=== PATIENT | male | born 1960 | race Caucasian/White ===

== ENCOUNTER 2017-10-20 03:35 | Inpatient (IN) | END 2017-10-29 15:45 | disposition home or self-care (01) | DRG 812 ==

== ENCOUNTER 2017-11-13 10:41 | Inpatient (IN) | END 2017-11-14 18:53 | disposition home or self-care (01) | DRG 810 ==

== ENCOUNTER 2017-11-30 02:48 | Observation (INO) | END 2017-12-02 12:30 | disposition home or self-care (01) ==

== ENCOUNTER 2017-12-15 16:40 | Inpatient (IN) | END 2017-12-22 20:58 | disposition home or self-care (01) | DRG 809 ==

== ENCOUNTER 2018-07-05 18:43 | Inpatient (IN) | payer OTHER ==
[~2018-07-05] VITALS: Ht 177.8 cm; Wt 95.9 kg
[~2018-07-05 18:43] MED LIST: ALBU8.5H8 INH; CYCL100C21 PO; DOXY100T2 PO; FOLI-49 PO; MUPI22OI2 TOP; NYST1000 PO; PANT40TA3 PO; PANT40TA4 PO; PRED20TA PO; PRED5TAB PO
[2018-07-05] MEDS ORDERED: ACETAMINOPHEN 325 MG TAB PO STA (22:23)
[2018-07-05] MEDS ORDERED: CEFTRIAXONE 1 GM/50 ML (PMX) 50 ML IVPB STA (22:23)
[2018-07-05] MEDS ORDERED: SODIUM CHLORIDE 0.9% 1L BAG IV* STA (22:23)
[2018-07-05] MEDS ORDERED: ACYC200C2 PO (23:18)
[2018-07-05] MEDS ORDERED: FOLI-49 PO (23:19)
[2018-07-05] MEDS ORDERED: CYCL100C21 PO (23:20)
[2018-07-05] MEDS ORDERED: DEFE360T PO (23:21)
--- NOTE | 2018-07-06 01:17 | ERD ---
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 He also has abdominal pain and lung pain. Symptoms started 4 days ago. They have been worsening. He has had no treatment yet today. He does have a cough but no urinary symptoms. He is on cyclosporine. He did not get a flu shot this year. Upon review of old medical records this is the patient's 13th visit since 2008. ROS All systems reviewed and are negative except as per history of present illness. Medications Home Meds Reported Medications Deferasirox (Jadenu) 360 Mg Tablet, 1080 MG PO QAM, TAB 07/05/18 Cyclosporine* (Cyclosporine* Modified) 100 Mg Capsule, 200 MG PO QAM, CAP 07/05/18 Folic Acid* (Folic Acid*) 1 Mg Tablet, 4 MG PO DAILY, TAB 07/05/18 Acyclovir* (Acyclovir*) 200 Mg Capsule, 400 MG PO DAILY, CAP 07/05/18 Discontinued Scripts Pantoprazole* (Protonix*) 40 Mg Tablet.dr, 40 MG PO DAILY for 30 Days, TAB Prov:AMERICA VALDEZ 12/22/17 Pantoprazole* (Pantoprazole*) 40 Mg Tablet.dr, 40 MG PO DAILY@06 for 30 Days Prov:AMERICA VALDEZ 12/22/17 Prednisone* (Prednisone*) 5 Mg Tab, 30 MG PO DAILY for 14 Days, TAB Prov:AMERICA VALDEZ 12/22/17 Mupirocin* (Bactroban*) 2% -22 Gram Oint...g., 1 APPLIC TOP BID for 14 Days Prov:AMERICA VALDEZ 12/22/17 Folic Acid* (Folic Acid*) 1 Mg Tablet, 4 MG PO DAILY for 30 Days, TAB Prov:AMERICA VALDEZ 12/22/17 Cyclosporine* (Cyclosporine* Modified) 100 Mg Capsule, 200 MG PO QAM for 30 Days, CAP Prov:ZENAMERICA SMITH 12/22/17 Cyclosporine* (Cyclosporine* Modified) 100 Mg Capsule, 100 MG PO QHS for 30 Days, CAP Prov:ZENAMERICA SMITH 12/22/17 Albuterol Sulfate* (Proair HFA*) 8.5 Gm Hfa.aer.ad, 2 PUFF INH Q4 for 14 Days, #1 INHALER Prov:AMERICA VALDEZ 12/22/17 Nystatin (Nystatin) 100,000 Unit/1 Ml Oral.susp, 5 ML PO TID for 7 Days Prov:AMERICA VALDEZ 12/22/17 Doxycycline* (Vibramycin*) 100 Mg Tab, 100 MG PO BID for 7 Days, TAB Prov:AMERICA VALDEZ 12/22/17 Prednisone* (Prednisone*) 20 Mg Tab, 50 MG PO DAILY for 14 Days, TAB Prov:MARIA ELENA RIDDLE MD 12/02/17 Folic Acid* (Folic Acid*) 1 Mg Tablet, 4 MG PO DAILY for 30 Days, TAB Prov:MARIA ELENA RIDDLE MD 10/29/17 Allergies Allergies: Coded Allergies: No Known Allergies (Verified Allergy, Mild, 07/05/18) PMhx/Soc History of Surgery: Yes (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 in 2009) Anesthesia Reaction: No Hx Neurological Disorder: Yes (Weakness) Hx Respiratory Disorders: No Hx Cardiac Disorders: Yes (Aplastic Anemia) Hx Psychiatric Problems: No Hx Miscellaneous Medical Probl: No Hx Alcohol Use: No Hx Substance Use: No Hx Tobacco Use: Yes (quit +20 yrs ago) Smoking Status: Former smoker FmHx Family History: No diabetes Physical Exam Vitals Vital Signs Date Temp Pulse Resp B/P (MAP) Pulse Ox O2 O2 Flow FiO2 Time Delivery Rate 07/05/18 112 20 125/87 95 Room Air 22:58 (100) 07/05/18 102.0 22:54 07/05/18 102.0 126 22 130/81 97 19:01 (97) Physical Exam Const: No acute distress Head: Atraumatic Eyes: Normal Conjunctiva ENT: Normal External Ears, Nose and Mouth. Neck: Full range of motion. No meningismus. Resp: Clear to auscultation bilaterally Cardio: Tachycardic rate without murmur Abd: Soft, non tender, non distended. Normal bowel sounds Skin: No petechiae or rashes Back: No midline or flank tenderness Ext: No cyanosis, or edema Neur: Awake and alert Psych: Normal Mood and Affect Result Diagram: 07/05/18225407/05/182254 Results 24 hrs Laboratory Tests Test 07/05/18 22:53 07/05/18 22:55 POC Venous Lactate 1.3 mmol/L White Blood Count 8.7 10^3/ul Red Blood Count 3.49 10^6/ul Hemoglobin 13.0 g/dl Hematocrit 37.0 % Mean Corpuscular Volume 106.0 fl Mean Corpuscular Hemoglobin 37.2 pg Mean Corpuscular Hemoglobin Concent 35.1 g/dl Red Cell Distribution Width 13.4 % Platelet Count 154 10^3/UL Mean Platelet Volume 9.9 fl Immature Granulocytes % 0.800 % Neutrophils % 73.6 % Lymphocytes % 11.3 % Monocytes % 10.3 % Eosinophils % 3.2 % Basophils % 0.8 % Nucleated Red Blood Cells % 0.0 /100WBC Immature Granulocytes # 0.070 10^3/ul Neutrophils # 6.4 10^3/ul Lymphocytes # 1.0 10^3/ul Monocytes # 0.9 10^3/ul Eosinophils # 0.3 10^3/ul Basophils # 0.1 10^3/ul Nucleated Red Blood Cells # 0.0 10^3/ul Prothrombin Time 14.4 Sec Prothrombin Time Ratio 1.1 INR International Normalized Ratio 1.11 Activated Partial Thromboplast Time 40.2 Sec Sodium Level 141 mmol/L Potassium Level 4.5 mmol/L Chloride Level 105 mmol/L Carbon Dioxide Level 24 mmol/L Anion Gap 12 Blood Urea Nitrogen 24 mg/dl Creatinine 1.21 mg/dl Est Glomerular Filtrat Rate mL/min > 60 mL/min Glucose Level 132 mg/dl Calcium Level 9.5 mg/dl Troponin I < 0.012 ng/ml Current Medications Medications Dose Sig/Riya Start Time Status Last (Trade) Ordered Route PRN Stop Time Admin Dose Reason Admin Sodium 2,830 ml BOLUS OVER 2 07/05/18 DC 07/05/18 Chloride HOURS STAT 22:23 07/05/18 22:55 (NS) IV* 22:24 650 mg ONCE STAT 07/05/18 DC 07/05/18 Acetaminophen PO 22:23 07/05/18 22:54 (Tylenol 22:24 Tab) Ceftriaxone 50 ml @ ONCE STAT 07/05/18 DC 07/05/18 Sodium 100 mls/hr IVPB 22:23 07/05/18 22:55 22:52 Ondansetron 4 mg BRIDGE ORDER 07/06/18 HCl (Zofran PRN IV 01:30 07/07/18 Inj) NAUSEA AND/OR 01:29 VOMITING 650 mg ER BRIDGE 07/06/18 Acetaminophen PRN PO MILD 01:30 07/07/18 (Tylenol PAIN(1-3)OR 01:29 Tab) ELEVATED TEMP Procedures/MDM EKG read by me: Rate/Rhythm: Sinus tachycardia at a rate of 110 Intervals: Normal Impression: Tachycardia without ischemia X-ray negative per radiology. Flu swab was negative. Sepsis Documentation: Patient's infectious symptoms have not stabilized and the patient is at risk of rapid decompensation. The patient will be admitted for careful hydration, antibiotic therapy, and infectious source control. SEVERE SEPSIS CRITERIA: Infectious source: Fever of unknown origin End organ damage indicated by: No endorgan damage at this time SEPSIS MANAGEMENT Time of recognition of sepsis: 2254. Time of recognition of severe sepsis: No severe sepsis at this time. Time of recognition of septic shock: No septic shock at this time. 3 HOUR BUNDLE Blood cultures x 2 before broad-spectrum antibiotics: Yes 30 ml/kg NS bolus completed Initial lactate 1.3 Repeat lactate pending SEPTIC SHOCK ASSESSMENT: No lactic acid > 4.0 No persistent hypotension (SBP < 90 or 40 mmHg drop, MAP < 65) despite 30 mL/kg IV fluid bolus VOLUME REASSESSMENT FOR SEPTIC SHOCK: No septic shock at this time PERSISTENT HYPOTENSION TREATMENT: Comfort care no Central line not Required Vasopressor started not required I considered further perfusion assessment with CVP measurement, SCVO2, bedside ultrasound volume assessment, passive leg raise, trial of further fluid bolus. And proceeded with 30 ml/kg fluid bolus of NSS, broad spectrum antibiotics, and admission. The patient has [employer] insurance and I spoke with Dr. Mathias for admission to a medical surgical bed. CRITICAL CARE Critical care time 35 minutes Emergent fluid management while maintaining close respiratory support. Provision of immediate and broad-spectrum antibiotic therapy. Simultaneous assessment for possible sources in order to direct targeted therapy. Consideration for invasive and chemical support to prevent cardiopulmonary collapse. Critical care time is independent of procedures performed. Departure Diagnosis: Primary Impression: Sepsis Sepsis type: sepsis due to unspecified organism Qualified Codes: A41.9 - Sepsis, unspecified organism Additional Impression: Fever of unknown origin Condition: LUCIANO Boyer MD Jul 06, 2018 01:17
[2018-07-06] MEDS ORDERED: ONDANSETRON 4 MG INJ IV PRN (01:30)
[2018-07-06] MEDS ORDERED: ACETAMINOPHEN 325 MG TAB PO PRN (01:30)
[2018-07-06 02:14] VITALS: Ht 177.8 cm; Wt 95.9 kg
[2018-07-06 02:41] VITALS: BP 138/81; PULSE 103; RESP 26
[2018-07-06] MEDS ORDERED: morphine SULFATE/PF (2 MG/2 ML) SYG IV PRN (04:30)
[2018-07-06] MEDS: PANTOPRAZOLE 40 MG INJ IV SCH (05:05)
[2018-07-06] MEDS: SOD CHLORIDE 0.9% 1,000 ML IV SCH ×3 (05:20→19:17)
[2018-07-06 07:34] VITALS: BP 149/80; PULSE 99; RESP 16
[2018-07-06] MEDS: FOLIC ACID 1 MG TAB PO SCH (08:18)
[2018-07-06] MEDS: CYCLOSPORINE MICROEMULS 100 MG CAP PO SCH (08:18)
[2018-07-06] MEDS: ACYCLOVIR 400 MG TAB PO SCH (08:19)
[2018-07-06] MEDS: ACETAMINOPHEN 325 MG TAB PO PRN ×2 (08:23→14:19)
[2018-07-06] MEDS ORDERED: CYCLOSPORINE MICROEMULS 100 MG CAP PO SCH (09:00)
[2018-07-06 14:17] VITALS: BP 144/80; PULSE 87; RESP 16
--- NOTE | 2018-07-06 17:14 | QN ---
Documentation Comment [id number] JORGE TEMPLETON MD Jul 06, 2018 17:14
--- NOTE | 2018-07-06 18:15 | HP ---
DATE OF ADMISSION: 07/06/2018 HISTORY OF PRESENT ILLNESS: Mr. Luciano is a 58-year-old male who has a history of anemia, gastritis , history of thymectomy. The patient has a history of transfusion related iron overload. The patien t's ejection fraction was 65% by echo in the past. The patient also has a pure red cell aplasia. He was recently started on cyclosporine per patient. He presents to this hospital with weakness, abdom inal pain, fever and cough, flu-like symptoms and he was noted to have pulse 103, temperature 99.4. The patient is being admitted for further management. PAST MEDICAL HISTORY: As mentioned above, red cell aplasia. The patient has a history of thymectomy , anemia, history of ____ blood transfusion. ALLERGY HISTORY: NEGATIVE. FAMILY HISTORY: Negative. SOCIAL HISTORY: Negative. MEDICATIONS: 1. Acyclovir. 2. Cyclosporine. 3. ____ mg tablet q.a.m. 4. Folic acid. REVIEW OF SYSTEMS: HEENT: Unremarkable. RESPIRATORY: No shortness of breath, cough, sputum production. CARDIOVASCULAR: Unremarkable. ABDOMEN: Denies any diarrhea, abdominal pain at this point. EXTREMITIES: No swelling. CENTRAL NERVOUS SYSTEM: No numbness or tingling. PHYSICAL EXAMINATION: GENERAL: The patient is awake and alert. VITAL SIGNS: Pulse 87, blood pressure 149/80. HEENT: Head is atraumatic, normocephalic. Pupils are equal, reactive. No pallor or conjunctival ic terus. NECK: Supple. No JVD. LUNGS: Clear. CARDIOVASCULAR: S1, S2 are normal. ABDOMEN: Soft and nontender. Bowel sounds are present. No palpable mass or hepatosplenomegaly. No guarding, rebound tenderness. EXTREMITIES: No cyanosis, clubbing or edema. CENTRAL NERVOUS SYSTEM: The patient is awake, alert. No focal deficit. LABORATORY DATA: Sodium 142, potassium 4.4. Hemoglobin of 11.2, platelet count of 140. IMPRESSION: 1. Viral syndrome. 2. Pure red cell aplasia. PLAN: At this point is to ____ this patient. The patient is currently on empiric antibiotics. The patient is on Tylenol. The patient is on acyclovir. The patient is on cyclosporine daily. The deangelo ent is on folic acid. The patient is on morphine, Protonix. The patient is on IV fluid. To continu e current treatment. Await for cultures to come back. Dictated By: JORGE SOFIA/KATIUSKA Conf#: [id number] DID#: [id number]
[2018-07-06 20:00] VITALS: BP 142/75; PULSE 81; RESP 18
[2018-07-06] MEDS ORDERED: CEFTRIAXONE 1 GM/50 ML (PMX) 50 ML IVPB SCH (23:00)
[2018-07-07] MEDS: ACETAMINOPHEN 325 MG TAB PO PRN ×3 (02:39→15:00)
[2018-07-07 02:45] VITALS: BP 151/75; PULSE 104; RESP 24
[2018-07-07] MEDS: DEFERASIROX 1080 MG PO SCH (06:19)
[2018-07-07] MEDS: PANTOPRAZOLE 40 MG INJ IV SCH (06:19)
[2018-07-07 08:56] VITALS: BP 136/76; PULSE 102; RESP 18
[2018-07-07] MEDS: FOLIC ACID 1 MG TAB PO SCH (08:58)
[2018-07-07] MEDS: ACYCLOVIR 400 MG TAB PO SCH (08:58)
[2018-07-07] MEDS: CYCLOSPORINE MICROEMULS 100 MG CAP PO SCH (08:58)
[2018-07-07] MEDS: SOD CHLORIDE 0.9% 1,000 ML IV SCH ×2 (09:02→23:24)
[2018-07-07] MEDS ORDERED: SOD CHLORIDE 0.9% 500 ML IV ONE (09:30)
[2018-07-07] MEDS ORDERED: VANCOMYCIN IV PER PHARMACY XX SCH (10:30)
--- NOTE | 2018-07-07 11:10 | CONS ---
DATE OF ADMISSION: 07/06/2018 DATE OF CONSULTATION: 07/07/2018 TYPE OF CONSULTATION: Infectious disease. REASON FOR CONSULTATION: Antibiotic management. HISTORY OF PRESENT ILLNESS: Tony Luciano is a 58-year-old male who comes in with flu-like symptoms for 3 days and a history of red blood cell aplasia. As noted, the patient is a 58-year-old male with a aplastic red cell disorder who comes in short of breath with fever. He complains of abd ominal pain and chest pain which started about 4 days ago. These symptoms have worsened. He has a c ough, but no urinary tract symptoms. He is on cyclosporine. He did not get a flu shot this year. 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 He quit smoking 20 years ago. On admission, his white count was 8.7, H and H of 13 and 37, platelet count 154,000. BUN and creatinine 24/1.2. His blood cultures are negative. Urine culture is negative. Influenza A and B is also negative. Chest x-ray shows no evidence for acute cardiopulmonary disease. Patient was begun on ceftriaxone and then on acyclovir. His white count today is 6.5, H and H 11.2 and 32.2, platelet count 135,000. His ejection fraction was 65% in the past. PHYSICAL EXAMINATION: GENERAL: He is a well-developed, well-nourished male, awake, responsive, in no acute distress. VITAL SIGNS: Stable. He is afebrile. SKIN: Without generalized rash. HEENT: Within normal limits. NECK: Supple. LYMPH NODES: None palpable. CHEST: Decreased breath sounds at the bases. HEART: Without murmur or gallop. ABDOMEN: Soft, nontender, without organosplenomegaly or masses. EXTREMITIES: Without cyanosis, clubbing, or edema. RECTAL AND GENITAL: Deferred. NEUROLOGIC: No focal neurological abnormality. IMPRESSION AND PLAN: The patient probably has a viral syndrome or possibly bronchitis since his ches t x-ray is negative, his white count is normal and his influenza studies are negative. I agree with empiric antibiotic therapy. He is on acyclovir and cyclosporine. I will dictate my findings to Dr. Saulo Templeton. I want to thank him for asking us to see this gentleman in consultation. Dictated By: OCTAVIO DOBBS MD, JD/KATIUSKA Conf#: [id number] DID#: [id number] CC: SAULO TEMPLETON MD;*EndCC*
[2018-07-07] MEDS: CEFEPIME 1GM/50 ML (PMX) 50 ML IVPB SCH ×2 (11:27→21:00)
[2018-07-07 11:30] VITALS: PULSE 100
[2018-07-07] MEDS ORDERED: VANCOMYCIN 2 GM in SOD CHLORIDE 0.9% 500 ML IVPB SCH (11:30)
--- NOTE | 2018-07-07 14:12 | PN ---
Date/Time of Note Date/Time of Note DATE: 07/07/18 TIME: 14:10 Assessment/Plan VTE Prophylaxis Risk score (from [facility] [place])>0 risk: 2 SCD applied (from [facility] [place]): Yes Pharmacological prophylaxis: NA/contraindicated Pharm contraindication: low risk/ambulating Lines/Catheters IV Catheter Type (from [facility]): Peripheral IV Assessment/Plan Hospital Course 58 y/o with # SIRS ? source viral # Fevers # Red cell aplasia Plan - iv vanco/cefepime - f/u bld cx - iv fluids - ID consult - cw acyclovir cw cyclsporine - GI/DVT prophylaxsis Result Diagram: 07/07/18 0504 07/07/18 0504 Results 24hrs Laboratory Tests Test 07/07/18 05:04 White Blood Count 6.5 Red Blood Count 3.01 L Hemoglobin 11.2 L Hematocrit 32.2 L Mean Corpuscular Volume 107.0 H Mean Corpuscular Hemoglobin 37.2 H Mean Corpuscular Hemoglobin Concent 34.8 Red Cell Distribution Width 13.3 Platelet Count 135 L Mean Platelet Volume 10.2 Immature Granulocytes % 1.400 H Neutrophils % 73.9 Lymphocytes % 11.6 L Monocytes % 9.6 Eosinophils % 2.9 Basophils % 0.6 Nucleated Red Blood Cells % 0.0 Immature Granulocytes # 0.090 H Neutrophils # 4.8 Lymphocytes # 0.8 Monocytes # 0.6 Eosinophils # 0.2 Basophils # 0.0 Nucleated Red Blood Cells # 0.0 Sodium Level 141 Potassium Level 4.4 Chloride Level 105 Carbon Dioxide Level 26 Anion Gap 10 Blood Urea Nitrogen 16 Creatinine 1.11 Est Glomerular Filtrat Rate mL/min > 60 Glucose Level 118 Calcium Level 9.1 Total Bilirubin 0.1 L Direct Bilirubin 0.00 Indirect Bilirubin 0.1 Aspartate Amino Transf (AST/SGOT) 29 Alanine Aminotransferase (ALT/SGPT) 21 Alkaline Phosphatase 97 Total Protein 6.6 Albumin 3.8 Globulin 2.80 Albumin/Globulin Ratio 1.35 Subjective 24 Hr Interval Summary Free Text/Dictation Fevers pf 102.5 no sob Exam/Review of Systems Vital Signs Vitals Vital Signs Date Temp Pulse Resp B/P (MAP) Pulse Ox O2 O2 Flow FiO2 Time Delivery Rate 07/07/18 98.8 100 11:30 07/07/18 18 136/76 97 Room Air 08:56 (96) 07/06/18 2.0 20:00 Intake and Output 07/06/18 07/06/18 07/07/18 1515:00 23:00 07:00 IntakeIntake Total 840 ml 1594 ml 50 ml OutputOutput Total 1500 ml BalanceBalance -660 ml 1594 ml 50 ml Exam HEENT: Head is atraumatic, normocephalic. Pupils are equal, reactive. No pallor or conjunctival icterus. NECK: Supple. No JVD. LUNGS: Clear. CARDIOVASCULAR: S1, S2 are normal. ABDOMEN: Soft and nontender. Bowel sounds are present. No palpable mass or hepatosplenomegaly. No guarding, rebound tenderness. EXTREMITIES: No cyanosis, clubbing or edema. CENTRAL NERVOUS SYSTEM: The patient is awake, alert. No focal deficit. Medications Medications Current Medications Pantoprazole (Protonix Iv) 40 mg DAILY@06 IV Last administered on 07/07/18at 06:19; Admin Dose 40 MG; Start 07/06/18 at 06:00 Sodium Chloride 1,000 ml @ 70 mls/hr [id number] IV Last administered on 07/07/18at 09:02; Admin Dose 70 MLS/HR; Start 07/06/18 at 04:30 Acetaminophen (Tylenol Tab) 650 mg Q6H PRN PO MILD PAIN(1-3)OR ELEVATED TEMP Last administered on 07/07/18at 09:00; Admin Dose 650 MG; Start 07/06/18 at 04:30 Morphine Sulfate (morphine SULFATE (PF)) 2 mg Q4H PRN IV SEVERE PAIN LEVEL 7- 10; Start 07/06/18 at 04:30 Acyclovir (Zovirax) 400 mg DAILY PO Last administered on 07/07/18at 08:58; Admin Dose 400 MG; Start 07/06/18 at 09:00 Folic Acid (Folic Acid) 4 mg DAILY PO Last administered on 07/07/18 08:58; Admin Dose 4 MG; Start 07/06/18 at 09:00 Cyclosporine (Neoral) 200 mg DAILY PO Last administered on 07/07/18 08:58; Admin Dose 200 MG; Start 07/06/18 at 09:00 Patient Own Medication 3 ea DAILY@0500 PO Last administered on 07/07/18 06:19; Admin Dose 3 EA; Start 07/07/18 at 05:00 Vancomycin HCl (Vanco Iv Per Pharmacy) VANCOMYCIN PER PHARMACY PER PROTOCOL XX ; Start 07/07/18 at 10:30 Cefepime HCl 50 ml @ 100 mls/hr Q12 IVPB Last administered on 07/07/18at 11:27; Admin Dose 100 MLS/HR; Start 07/07/18 at 10:30 Vancomycin HCl 2 gm/Sodium Chloride 500 ml @ 125 mls/hr ONCE IVPB Last administered on 07/07/18at 12:45; Admin Dose 125 MLS/HR; Start 07/07/18 at 11:30; Stop 07/07/18 at 15:29 MARIA ELENA RIDDLE MD Jul 07, 2018 14:12
[2018-07-07 14:45] VITALS: BP 121/68; PULSE 96; RESP 18
[2018-07-07 19:51] VITALS: BP 130/76; PULSE 94; RESP 18
[2018-07-08] MEDS: VANCOMYCIN 1.25 GM in SOD CHLORIDE 0.9% 250 ML IVPB SCH ×3 (00:10→23:53)
[2018-07-08] MEDS: ACETAMINOPHEN 325 MG TAB PO PRN ×3 (00:12→18:23)
[2018-07-08 02:27] VITALS: BP 110/62; PULSE 82; RESP 18
[2018-07-08] MEDS: DEFERASIROX 1080 MG PO SCH (05:57)
[2018-07-08] MEDS: PANTOPRAZOLE 40 MG INJ IV SCH (05:58)
[2018-07-08 07:34] VITALS: BP 132/74; PULSE 91; RESP 19
[2018-07-08] MEDS: CEFEPIME 1GM/50 ML (PMX) 50 ML IVPB SCH ×2 (09:21→21:54)
[2018-07-08] MEDS: ACYCLOVIR 400 MG TAB PO SCH (09:21)
[2018-07-08] MEDS: CYCLOSPORINE MICROEMULS 100 MG CAP PO SCH (09:21)
[2018-07-08] MEDS: SOD CHLORIDE 0.9% 1,000 ML IV SCH (09:21)
[2018-07-08] MEDS: FOLIC ACID 1 MG TAB PO SCH (09:22)
--- NOTE | 2018-07-08 13:39 | CONS ---
Date/Time of Note Date/Time of Note DATE: 07/08/18 TIME: 13:38 Assessment/Plan Assessment/Plan Hospital Course Patient is alert feels good denies pain had been afebrile since yesterday with a T-max of 101.8 to current 98.7 WBC 6.2 H&H 11.8 and 34 platelets 137 neutrophils 62.9 BUN 14 creatinine 1.05 Microbiology: Blood and urine cultures remain negative influenza swab negative Chest x-ray on admission revealed no evidence for active cardiopulmonary disease Antimicrobials: Vanco cefepime acyclovir Physical examination: Obese well-developed middle-aged man who is alert in no distress. Head atraumatic normocephalic sclera nonicteric. Neck is supple chest rise symmetrical breath sounds diminished bases. Heart: S1-S2. Abdomen soft bowel sounds present extremities without cyanosis. Assessment: 1. Fevers of unknown origin 2. History of red blood cell aplasia 3. Status post shortness of breath and chest pain Plan: Patient remained stable fevers are resolving, we will continue him on current regimen Result Diagram: 07/08/18 0610 07/08/18 0610 Results 24hrs Laboratory Tests Test 07/08/18 06:10 White Blood Count 6.2 Red Blood Count 3.16 L Hemoglobin 11.8 L Hematocrit 34.0 L Mean Corpuscular Volume 107.6 H Mean Corpuscular Hemoglobin 37.3 H Mean Corpuscular Hemoglobin Concent 34.7 Red Cell Distribution Width 13.3 Platelet Count 137 L Mean Platelet Volume 9.9 Immature Granulocytes % 0.500 H Neutrophils % 62.9 Lymphocytes % 22.7 Monocytes % 9.8 Eosinophils % 3.5 Basophils % 0.6 Nucleated Red Blood Cells % 0.0 Immature Granulocytes # 0.030 Neutrophils # 3.9 Lymphocytes # 1.4 Monocytes # 0.6 Eosinophils # 0.2 Basophils # 0.0 Nucleated Red Blood Cells # 0.0 Sodium Level 144 Potassium Level 4.3 Chloride Level 105 Carbon Dioxide Level 27 Anion Gap 12 Blood Urea Nitrogen 14 Creatinine 1.05 Est Glomerular Filtrat Rate mL/min > 60 Glucose Level 100 Calcium Level 9.4 Phosphorus Level 3.0 Magnesium Level 1.9 Consultation Date/Type/Reason Admit Date/Time Jul 06, 2018 at 01:07 Initial Consult Date Type of Consult id Exam/Review of Systems Vital Signs Vitals Vital Signs Date Temp Pulse Resp B/P (MAP) Pulse Ox O2 O2 Flow FiO2 Time Delivery Rate 07/08/18 98.7 91 19 132/74 96 07:34 (93) 07/07/18 Room Air 14:45 07/06/18 2.0 20:00 Intake and Output 07/07/18 07/07/18 07/08/18 1515:00 23:00 07:00 IntakeIntake Total 2170 ml 1695 ml 850 ml OutputOutput Total 600 ml 400 ml 300 ml BalanceBalance 1570 ml 1295 ml 550 ml Medications Medications Current Medications Pantoprazole (Protonix Iv) 40 mg DAILY@06 IV Last administered on 07/08/18 05:58; Admin Dose 40 MG; Start 07/06/18 at 06:00 Sodium Chloride 1,000 ml @ 70 mls/hr [id number] IV Last administered on 07/08/18 09:21; Admin Dose 70 MLS/HR; Start 07/06/18 at 04:30 Acetaminophen (Tylenol Tab) 650 mg Q6H PRN PO MILD PAIN(1-3)OR ELEVATED TEMP Last administered on 07/08/18 12:34; Admin Dose 650 MG; Start 07/06/18 at 04:30 Morphine Sulfate (morphine SULFATE (PF)) 2 mg Q4H PRN IV SEVERE PAIN LEVEL 7- 10; Start 07/06/18 at 04:30 Acyclovir (Zovirax) 400 mg DAILY PO Last administered on 07/08/18 09:21; Admin Dose 400 MG; Start 07/06/18 at 09:00 Folic Acid (Folic Acid) 4 mg DAILY PO Last administered on 07/08/18 09:22; Admin Dose 4 MG; Start 07/06/18 at 09:00 Cyclosporine (Neoral) 200 mg DAILY PO Last administered on 07/08/18 09:21; Admin Dose 200 MG; Start 07/06/18 at 09:00 Patient Own Medication 3 ea DAILY@0500 PO Last administered on 07/08/18 05:57; Admin Dose 3 EA; Start 07/07/18 at 05:00 Vancomycin HCl (Vanco Iv Per Pharmacy) VANCOMYCIN PER PHARMACY PER PROTOCOL XX ; Start 07/07/18 at 10:30 Cefepime HCl 50 ml @ 100 mls/hr Q12 IVPB Last administered on 1/8/19at 09:21; Admin Dose 100 MLS/HR; Start 07/07/18 at 10:30 Vancomycin HCl 1.25 gm/Sodium Chloride 250 ml @ 83.333 mls/ hr Q12H IVPB Last administered on 07/08/18at 12:34; Admin Dose 83.333 MLS/HR; Start 07/08/18 at 00:00 Miscellaneous Information (*Rx Drug Level Order Reminder*) 1 ONCE ONCE XX ; Start 07/08/18 at 23:00; Stop 07/08/18 at 23:01 MIGUEL SINGH NP Jul 08, 2018 13:39
--- NOTE | 2018-07-08 14:39 | PN ---
Date/Time of Note Date/Time of Note DATE: 07/08/18 TIME: 14:37 Assessment/Plan VTE Pro[place]axis [place] [facility] [place]: 2 [place]CD applied [place] [facility] [place] Yes Pharmacological prophylaxis: NA/contraindicated Pharm contraindication: low risk/ambulating Lines/Catheters IV Catheter Type (from [facility]): Peripheral IV Assessment/Plan Hospital Course 58 y/o with # SIRS ? 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 Plan - iv vanco/cefepime - f/u bld cx - iv fluids - cx neg so far - robitussin - cw acyclovir cw cyclsporine - GI/DVT prophylaxsis dc likley tmw if cx neg and afebrile atleast 24 hrs Result Diagram: 07/08/1810 07/08/18 0610 Results 24hrs Laboratory Tests Test 07/08/18 06:10 White Blood Count 6.2 Red Blood Count 3.16 L Hemoglobin 11.8 L Hematocrit 34.0 L Mean Corpuscular Volume 107.6 H Mean Corpuscular Hemoglobin 37.3 H Mean Corpuscular Hemoglobin Concent 34.7 Red Cell Distribution Width 13.3 Platelet Count 137 L Mean Platelet Volume 9.9 Immature Granulocytes % 0.500 H Neutrophils % 62.9 Lymphocytes % 22.7 Monocytes % 9.8 Eosinophils % 3.5 Basophils % 0.6 Nucleated Red Blood Cells % 0.0 Immature Granulocytes # 0.030 Neutrophils # 3.9 Lymphocytes # 1.4 Monocytes # 0.6 Eosinophils # 0.2 Basophils # 0.0 Nucleated Red Blood Cells # 0.0 Sodium Level 144 Potassium Level 4.3 Chloride Level 105 Carbon Dioxide Level 27 Anion Gap 12 Blood Urea Nitrogen 14 Creatinine 1.05 Est Glomerular Filtrat Rate mL/min > 60 Glucose Level 100 Calcium Level 9.4 Phosphorus Level 3.0 Magnesium Level 1.9 Subjective 24 Hr Interval Summary Free Text/Dictation feels much better fevers subsided Exam/Review of Systems Vital Signs Vitals Vital Signs Date Temp Pulse Resp B/P (MAP) Pulse Ox O2 O2 Flow FiO2 Time Delivery Rate 07/08/18 98.7 91 19 132/74 96 07:34 (93) 07/07/18 Room Air 14:45 07/06/18 2.0 20:00 Intake and Output 07/07/18 07/07/18 07/08/18 1515:00 23:00 07:00 IntakeIntake Total 2170 ml 1695 ml 850 ml OutputOutput Total 600 ml 400 ml 300 ml BalanceBalance 1570 ml 1295 ml 550 ml Exam HEENT: Head is atraumatic, normocephalic. Pupils are equal, reactive. No pallor or conjunctival icterus. NECK: Supple. No JVD. LUNGS: Clear. CARDIOVASCULAR: S1, S2 are normal. ABDOMEN: Soft and nontender. Bowel sounds are present. No palpable mass or hepatosplenomegaly. No guarding, rebound tenderness. EXTREMITIES: No cyanosis, clubbing or edema. CENTRAL NERVOUS SYSTEM: The patient is awake, alert. No focal deficit. Medications Medications Current Medications Pantoprazole (Protonix Iv) 40 mg DAILY@06 IV Last administered on 07/08/18 05:58; Admin Dose 40 MG; Start 07/06/18 at 06:00 Sodium Chloride 1,000 ml @ 70 mls/hr [id number] IV Last administered on 07/08/18 09:21; Admin Dose 70 MLS/HR; Start 07/06/18 at 04:30 Acetaminophen (Tylenol Tab) 650 mg Q6H PRN PO MILD PAIN(1-3)OR ELEVATED TEMP Last administered on 07/08/18 12:34; Admin Dose 650 MG; Start 07/06/18 at 04:30 Morphine Sulfate (morphine SULFATE (PF)) 2 mg Q4H PRN IV SEVERE PAIN LEVEL 7- 10; Start 07/06/18 at 04:30 Acyclovir (Zovirax) 400 mg DAILY PO Last administered on 07/08/18 09:21; Admin Dose 400 MG; Start 07/06/18 at 09:00 Folic Acid (Folic Acid) 4 mg DAILY PO Last administered on 07/08/18 09:22; Admin Dose 4 MG; Start 07/06/18 at 09:00 Cyclosporine (Neoral) 200 mg DAILY PO Last administered on 07/08/18 09:21; Admin Dose 200 MG; Start 07/06/18 at 09:00 Patient Own Medication 3 ea DAILY@0500 PO Last administered on 07/08/18 05:57; Admin Dose 3 EA; Start 07/07/18 at 05:00 Vancomycin HCl (Vanco Iv Per Pharmacy) VANCOMYCIN PER PHARMACY PER PROTOCOL XX ; Start 07/07/18 at 10:30 Cefepime HCl 50 ml @ 100 mls/hr Q12 IVPB Last administered on 07/08/18at 09:21; Admin Dose 100 MLS/HR; Start 07/07/18 at 10:30 Vancomycin HCl 1.25 gm/Sodium Chloride 250 ml @ 83.333 mls/ hr Q12H IVPB Last administered on 07/08/18at 12:34; Admin Dose 83.333 MLS/HR; Start 07/08/18 at 00:00 Miscellaneous Information (*Rx Drug Level Order Reminder*) 1 ONCE ONCE XX ; Start 07/08/18 at 23:00; Stop 07/08/18 at 23:01 MARIA ELENA RIDDLE MD Jul 08, 2018 14:39
[2018-07-08 15:06] VITALS: BP 129/69; PULSE 87; RESP 17
[2018-07-08] MEDS: GUAIFENESIN/DM 5ML CUP PO PRN ×2 (18:23→23:53)
[2018-07-08 19:39] VITALS: BP 126/70; PULSE 84; RESP 16
[2018-07-08] MEDS ORDERED: morphine LIQ (10 MG/5 ML) CUP PO PRN (23:30)
[2018-07-09 01:50] VITALS: BP 123/72; PULSE 84; RESP 16
[2018-07-09] MEDS: SOD CHLORIDE 0.9% 1,000 ML IV SCH ×2 (04:00→06:31)
[2018-07-09] MEDS: GUAIFENESIN/DM 5ML CUP PO PRN ×2 (05:20→23:06)
[2018-07-09] MEDS: PANTOPRAZOLE 40 MG INJ IV SCH (05:20)
[2018-07-09] MEDS: DEFERASIROX 1080 MG PO SCH (06:31)
[2018-07-09 07:38] VITALS: BP 128/72; PULSE 89; RESP 19
[2018-07-09] MEDS: ACYCLOVIR 400 MG TAB PO SCH (08:55)
[2018-07-09] MEDS: FOLIC ACID 1 MG TAB PO SCH (08:55)
[2018-07-09] MEDS: CYCLOSPORINE MICROEMULS 100 MG CAP PO SCH (08:56)
[2018-07-09] MEDS: CEFEPIME 1GM/50 ML (PMX) 50 ML IVPB SCH (08:56)
[2018-07-09] MEDS ORDERED: VANCOMYCIN 1 GM 250 ML IVPB SCH (12:00)
--- NOTE | 2018-07-09 12:16 | PN ---
Date/Time of Note Date/Time of Note DATE: 07/09/18 TIME: 12:14 Assessment/Plan VTE Pro[place]axis [place] [facility] [place] risk: 2 SCD [place] [facility] [place] Yes Pharmacological prophylaxis: NA/contraindicated Pharm contraindication: low risk/ambulating Lines/Catheters IV C[facility]ter Type (from [facility]): Peripheral IV Assessment/Plan Hospital Course 58 y/o with # SIRS ? 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 Plan - dc all abx and observe - cx neg so far - robitussin prn - cw acyclovir prophylaxsis cw cyclsporine - GI/DVT prophylaxsis Result Diagram: 07/09/1851807/09/18518 Results 24hrs Laboratory Tests Test 07/08/18 22:44 07/09/18 05:19 Vancomycin Level Trough 16.3 White Blood Count 6.2 Red Blood Count 3.25 L Hemoglobin 12.1 L Hematocrit 34.7 L Mean Corpuscular Volume 106.8 H Mean Corpuscular Hemoglobin 37.2 H Mean Corpuscular Hemoglobin Concent 34.9 Red Cell Distribution Width 13.4 Platelet Count 143 Mean Platelet Volume 9.9 Immature Granulocytes % 0.800 H Neutrophils % 62.3 Lymphocytes % 20.6 Monocytes % 9.5 Eosinophils % 6.5 Basophils % 0.3 Nucleated Red Blood Cells % 0.0 Immature Granulocytes # 0.050 H Neutrophils # 3.9 Lymphocytes # 1.3 Monocytes # 0.6 Eosinophils # 0.4 Basophils # 0.0 Nucleated Red Blood Cells # 0.0 Sodium Level 140 Potassium Level 4.2 Chloride Level 109 Carbon Dioxide Level 24 Anion Gap 7 Blood Urea Nitrogen 14 Creatinine 1.12 Est Glomerular Filtrat Rate mL/min > 60 Glucose Level 122 Calcium Level 9.5 Phosphorus Level 2.7 Magnesium Level 2.0 Subjective 24 Hr Interval Summary Free Text/Dictation fevers subsided Exam/Review of Systems Vital Signs Vitals Vital Signs Date Temp Pulse Resp B/P (MAP) Pulse Ox O2 O2 Flow FiO2 Time Delivery Rate 07/09/18 98.6 89 19 128/72 93 07:38 (90) 07/07/18 Room Air 14:45 07/06/18 2.0 20:00 Intake and Output 07/08/18 07/08/18 07/09/18 1515:00 23:00 07:00 IntakeIntake Total 635 ml 1250 ml 1250 ml BalanceBalance 635 ml 1250 ml 1250 ml Exam HEENT: Head is atraumatic, normocephalic. Pupils are equal, reactive. No pallor or conjunctival icterus. NECK: Supple. No JVD. LUNGS: Clear. CARDIOVASCULAR: S1, S2 are normal. ABDOMEN: Soft and nontender. Bowel sounds are present. No palpable mass or hepatosplenomegaly. No guarding, rebound tenderness. EXTREMITIES: No cyanosis, clubbing or edema. CENTRAL NERVOUS SYSTEM: The patient is awake, alert. No focal deficit. Medications Medications Current Medications Pantoprazole (Protonix Iv) 40 mg DAILY@06 IV Last administered on 07/09/18 05:20; Admin Dose 40 MG; Start 07/06/18 at 06:00 Sodium Chloride 1,000 ml @ 70 mls/hr [id number] IV Last administered on 07/09/18 06:31; Admin Dose 70 MLS/HR; Start 07/06/18 at 04:30 Acetaminophen (Tylenol Tab) 650 mg Q6H PRN PO MILD PAIN(1-3)OR ELEVATED TEMP Last administered on 07/08/18 18:23; Admin Dose 650 MG; Start 07/06/18 at 04:30 Acyclovir (Zovirax) 400 mg DAILY PO Last administered on 07/09/18 08:55; Admin Dose 400 MG; Start 07/06/18 at 09:00 Folic Acid (Folic Acid) 4 mg DAILY PO Last administered on 07/09/18 08:55; Ad min Dose 4 MG; Start 07/06/18 at 09:00 Cyclosporine (Neoral) 200 mg DAILY PO Last administered on 07/09/18 08:56; Admin Dose 200 MG; Start 07/06/18 at 09:00 Patient Own Medication 3 ea DAILY@0500 PO Last administered on 07/09/18 06:31; Admin Dose 3 EA; Start 07/07/18 at 05:00 Vancomycin HCl (Vanco Iv Per Pharmacy) VANCOMYCIN PER PHARMACY PER PROTOCOL XX ; Start 07/07/18 at 10:30 Cefepime HCl 50 ml @ 100 mls/hr Q12 IVPB Last administered on 07/09/18 08:56; Admin Dose 100 MLS/HR; Start 07/07/18 at 10:30 Guaifenesin/ Dextromethorphan (Robitussin Dm Liquid Cup) 10 ml Q4H PRN PO COUGH Last administered on 07/09/18at 05:20; Admin Dose 10 ML; Start 07/08/18 at 15:00 Morphine Sulfate (morphine) 6 mg Q4H PRN PO SEVERE PAIN LEVEL 7-10; Start 07/08/18 at 23:30 Vancomycin HCl 250 ml @ 125 mls/hr Q12H IVPB ; Start 07/09/18 at 12:00 MARIA ELENA RIDDLE MD Jul 09, 2018 12:16
--- NOTE | 2018-07-09 13:08 | CONS ---
Date/Time of Note Date/Time of Note DATE: 07/09/18 TIME: 13:07 Assessment/Plan Assessment/Plan Hospital Course Patient is alert denies pain, no nausea no vomiting no diarrhea, no dysuria, no fevers WBC 6.2, no shift no bands BUN 14 creatinine 1.12 Microbiology: All cultures negative Chest x-ray on admission revealed no evidence for active cardiopulmonary disease Physical examination: Obese well-developed middle-aged man who is alert in no distress. Head atraumatic normocephalic sclera nonicteric. Neck is supple chest rise symmetrical breath sounds diminished bases. Heart: S1-S2. Abdomen soft bowel sounds present extremities without cyanosis. Assessment: 1. Fevers of unknown origin 2. History of red blood cell aplasia 3. Status post shortness of breath and chest pain Plan: Patient remained stable, we will discontinue antibiotics and observe him overnight Result Diagram: 07/09/1819 07/09/18518 Results 24hrs Laboratory Tests Test 07/08/18 22:44 07/09/18 05:19 Vancomycin Level Trough 16.3 White Blood Count 6.2 Red Blood Count 3.25 L Hemoglobin 12.1 L Hematocrit 34.7 L Mean Corpuscular Volume 106.8 H Mean Corpuscular Hemoglobin 37.2 H Mean Corpuscular Hemoglobin Concent 34.9 Red Cell Distribution Width 13.4 Platelet Count 143 Mean Platelet Volume 9.9 Immature Granulocytes % 0.800 H Neutrophils % 62.3 Lymphocytes % 20.6 Monocytes % 9.5 Eosinophils % 6.5 Basophils % 0.3 Nucleated Red Blood Cells % 0.0 Immature Granulocytes # 0.050 H Neutrophils # 3.9 Lymphocytes # 1.3 Monocytes # 0.6 Eosinophils # 0.4 Basophils # 0.0 Nucleated Red Blood Cells # 0.0 Sodium Level 140 Potassium Level 4.2 Chloride Level 109 Carbon Dioxide Level 24 Anion Gap 7 Blood Urea Nitrogen 14 Creatinine 1.12 Est Glomerular Filtrat Rate mL/min > 60 Glucose Level 122 Calcium Level 9.5 Phosphorus Level 2.7 Magnesium Level 2.0 Consultation Date/Type/Reason Admit Date/Time Jul 06, 2018 at 01:07 Initial Consult Date Type of Consult id Exam/Review of Systems Vital Signs Vitals Vital Signs Date Temp Pulse Resp B/P (MAP) Pulse Ox O2 O2 Flow FiO2 Time Delivery Rate 07/09/18 98.6 89 19 128/72 93 07:38 (90) 07/07/18 Room Air 14:45 07/06/18 2.0 20:00 Intake and Output 07/08/18 07/08/18 07/09/18 1414:59 22:59 06:59 IntakeIntake Total 635 ml 1250 ml 1250 ml BalanceBalance 635 ml 1250 ml 1250 ml Medications Medications Current Medications Pantoprazole (Protonix Iv) 40 mg DAILY@06 IV Last administered on 07/09/18 05:20; Admin Dose 40 MG; Start 07/06/18 at 06:00 Acetaminophen (Tylenol Tab) 650 mg Q6H PRN PO MILD PAIN(1-3)OR ELEVATED TEMP Last administered on 07/08/18 18:23; Admin Dose 650 MG; Start 07/06/18 at 04:30 Acyclovir (Zovirax) 400 mg DAILY PO Last administered on 07/09/18 08:55; Admin Dose 400 MG; Start 07/06/18 at 09:00 Folic Acid (Folic Acid) 4 mg DAILY PO Last administered on 07/09/18at 08:55; Admin Dose 4 MG; Start 07/06/18 at 09:00 Cyclosporine (Neoral) 200 mg DAILY PO Last administered on 07/09/18 08:56; Admin Dose 200 MG; Start 07/06/18 at 09:00 Patient Own Medication 3 ea DAILY@0500 PO Last administered on 07/09/18 06:31; Admin Dose 3 EA; Start 07/07/18 at 05:00 Guaifenesin/ Dextromethorphan (Robitussin Dm Liquid Cup) 10 ml Q4H PRN PO COUGH Last administered on 07/09/18at 05:20; Admin Dose 10 ML; Start 07/08/18 at 15:00 Morphine Sulfate (morphine) 6 mg Q4H PRN PO SEVERE PAIN LEVEL 7-10; Start 07/08/18 at 23:30 MIGUEL SINGH NP Jul 09, 2018 13:08
[2018-07-09 14:00] VITALS: BP 121/66; PULSE 93; RESP 18
[2018-07-09 20:00] VITALS: BP 119/71; RESP 20
[2018-07-10 02:00] VITALS: BP 110/70; PULSE 86; RESP 20
[2018-07-10] MEDS: DEFERASIROX 1080 MG PO SCH (05:34)
[2018-07-10] MEDS: PANTOPRAZOLE 40 MG INJ IV SCH (05:34)
[2018-07-10] MEDS: GUAIFENESIN/DM 5ML CUP PO PRN (06:26)
[2018-07-10 07:52] VITALS: BP 125/76; PULSE 87; RESP 18
[2018-07-10] MEDS: CYCLOSPORINE MICROEMULS 100 MG CAP PO SCH (09:13)
[2018-07-10] MEDS: ACYCLOVIR 400 MG TAB PO SCH (09:13)
[2018-07-10] MEDS: FOLIC ACID 1 MG TAB PO SCH (09:13)
--- NOTE | 2018-07-10 10:41 | PDOCDIS ---
Discharge Instructions DIAGNOSIS Discharge Diagnosis VIRAL SYNDROME CONDITION [id number] Patient Condition: Chcec1e Fair HOME CARE INSTRUCTIONS: [id number] Special Diet: Bfdgy1o regular ACTIVITY: [id number] Activity Restrictions: [id number] Slowly Increase Activity Rest between Activity Avoid heavy lifting FOLLOW UP/APPOINTMENTS Follow-up Plan Return to ER if has fevers MARIA ELENA RIDDLE MD Jul 10, 2018 10:41
[2018-07-10] MEDS ORDERED: GUAI120S26 PO (10:42)
--- NOTE | 2018-07-10 11:30 | CONS ---
Date/Time of Note Date/Time of Note DATE: 07/10/18 TIME: 11:29 Assessment/Plan Assessment/Plan Hospital Course All notedPatient remains stable overnight per report had intermittent cough, no fevers Microbiology: All cultures negative Chest x-ray on admission revealed no evidence for active cardiopulmonary disease Physical examination: Obese well-developed middle-aged man who is alert in no distress. Head atraumatic normocephalic sclera nonicteric. Neck is supple chest rise symmetrical breath sounds diminished bases. Heart: S1-S2. Abdomen soft bowel sounds present extremities without cyanosis. Assessment: 1. Fevers of unknown origin, poss bronchitis given presence of cough 2. History of red blood cell aplasia 3. Status post shortness of breath and chest pain Plan: Patient remained stable, will give him a short course f oral Levaquin Result Diagram: 07/09/1851807/09/18518 Consultation Date/Type/Reason Admit Date/Time Jul 06, 2018 at 01:07 Initial Consult Date Type of Consult id Exam/Review of Systems Vital Signs Vitals Vital Signs Date Temp Pulse Resp B/P (MAP) Pulse Ox O2 O2 Flow FiO2 Time Delivery Rate 07/10/18 98.9 87 18 125/76 98 Room Air 07:52 (92) 07/06/18 2.0 20:00 Intake and Output 07/09/18 07/09/18 07/10/18 1515:00 23:00 07:00 IntakeIntake Total 880 ml 350 ml BalanceBalance 880 ml 350 ml Medications Medications Current Medications Pantoprazole (Protonix Iv) 40 mg DAILY@06 IV Last administered on 07/10/18at 05:34; Admin Dose 40 MG; Start 07/06/18 at 06:00 Acetaminophen (Tylenol Tab) 650 mg Q6H PRN PO MILD PAIN(1-3)OR ELEVATED TEMP Last administered on 07/08/18at 18:23; Admin Dose 650 MG; Start 07/06/18 at 04:30 Acyclovir (Zovirax) 400 mg DAILY PO Last administered on 07/10/18at 09:13; Admin Dose 400 MG; Start 07/06/18 at 09:00 Folic Acid (Folic Acid) 4 mg DAILY PO Last administered on 07/10/18at 09:13; Admin Dose 4 MG; Start 07/06/18 at 09:00 Cyclosporine (Neoral) 200 mg DAILY PO Last administered on 07/10/18at 09:13; Admin Dose 200 MG; Start 07/06/18 at 09:00 Patient Own Medication 3 ea DAILY@0500 PO Last administered on 07/10/18at 05:34; Admin Dose 3 EA; Start 07/07/18 at 05:00 Guaifenesin/ Dextromethorphan (Robitussin Dm Liquid Cup) 10 ml Q4H PRN PO COUGH Last administered on 07/10/18at 06:26; Admin Dose 10 ML; Start 07/08/18 at 15:00 Morphine Sulfate (morphine) 6 mg Q4H PRN PO SEVERE PAIN LEVEL 7-10; Start at 23:30 MIGUEL SINGH NP Jul 10, 2018 11:30
[2018-07-10] MEDS ORDERED: LEVO500T10 PO (15:12)
--- NOTE | 2018-07-10 19:17 | DS ---
DATE OF ADMISSION: 07/06/2018 DATE OF DISCHARGE: 07/10/2018 HISTORY OF PRESENTING ILLNESS AND HOSPITAL COURSE: This is a 58-year-old male with a history of anem ia, gastritis, thymectomy, history of transfusion related iron overload, history of pure red cell apl mallika, who is on cyclosporine, presented to the hospital complaining of weakness, abdominal pain, feve r, cough, flu-like symptoms, noted to have pulse of 103, temperature 99.4 and admitted for further ma nagement. On admission, sodium was 142, potassium 4.4, low hemoglobin 11.2, platelet count was 140. The patient had chest x-ray that was negative. He also had cultures that were done. Blood cultures were negative. Influenza A and B were negative. The next day, the patient started having fevers of 102. The patient was also started on broad spectrum IV antibiotics with vancomycin and cefepime. I D was also consulted and their recommendations were followed. The patient was also however continued acyclovir. The patient's condition was improving every day; however, cultures have been negative so far, but patient was having some cough. Chest x-ray was negative. Per ID, the patient was tapered off of antibiotics. Next day, the patient did not have any fevers. The patient has been afebrile fo r 48 hours. White count is 6.2, currently stable per ID to be discharged home. FINAL DISCHARGE DIAGNOSES: 1. Fevers of unknown origin, possible bronchitis given presence of cough. 2. History of pure red cell aplasia. 3. Status post shortness of breath and chest pain. 4. Systemic inflammatory response syndrome. DISCHARGE CONDITION: Stable. DISCHARGE DIET: Regular diet. DISCHARGE MEDICATIONS: 1. Levaquin 500 mg p.o. daily for 5 more days. A prescription was called in the [facility]. 2. Robitussin p.r.n. cough. Continue with home medications which were: 1. Acyclovir 400 daily. 2. Cyclosporine 200 q.a.m. 3. Jadenu 1080 p.o. q.a.m. 4. Folic acid 0.4 mg p.o. daily. DISCHARGE INSTRUCTIONS: The patient was instructed to return to the ER if he has severe worsening ch est pain, fevers and chills. FOLLOWUP: The patient follows Dr. Baker as an outpatient. Dictated By: MARIA ELENA DESAI/KATIUSKA Conf#: [id number] [facility]#: [id number] CC: JORGE TEMPLETON MD;*EndCC*
[2018-07-11] MEDS ORDERED: LEVOFLOXACIN 500 MG TAB PO SCH (06:00)
== END 2018-07-10 12:15 | disposition home or self-care (01) | DRG 202 ==
LOC: E/R 18:43 → 2NE 07-06 01:07
PROVIDERS: ADMIT Internal Medicine Nephrology; ATTEND Internal Medicine Nephrology
DX: J40 Bronchitis, not specified as acute or chronic (principal); D61.01 Constitutional (pure) red blood cell aplasia; R65.10 Systemic inflammatory response syndrome (SIRS) of non-infectious origin without acute organ dysfunction
CPT/HCPCS: 36415; 71045; 80048; 80053; 80202; 81003; 83605; 83735; 84100; 84484; 85025; 85610; 85730; 86850; 86900; 86901; 87040; 87086; 87400; 93005; 96374; C9113; J0692; J0696; J3370; J7030; J7040; J7050

== ENCOUNTER 2018-10-22 11:13 | Observation (INO) | payer OTHER ==
[~2018-10-22] VITALS: Ht 177.8 cm; Wt 100.7 kg
[~2018-10-22 11:13] MED LIST changes: +ACYC200C2 PO; -ALBU8.5H8 INH; +DEFE360T PO; -DOXY100T2 PO; +GUAI120S25 PO; +LEVO500T10 PO; -MUPI22OI2 TOP; -NYST1000 PO; -PANT40TA3 PO; -PANT40TA4 PO; -PRED20TA PO; -PRED5TAB PO
[2018-10-22] MEDS ORDERED: ACYC400T2 PO (12:23)
[2018-10-22] MEDS ORDERED: ACET-141 PO (12:25)
[2018-10-22] MEDS ORDERED: IOHEXOL 100 ML ONE (13:29)
[2018-10-22] MEDS ORDERED: SOD CHLORIDE 0.9% 100 ML ONE (13:29)
--- NOTE | 2018-10-22 14:03 | ERD ---
ER Documentation Chief Complaint Chief Complaint BACK PAIN RAD CHEST, SEND BY PMD FOR CT ANGIO.HX APLASTIC ANEMIA HPI 58-year-old male presents the emergency department complaining of chest pain. Patient was referred by his primary care doctor for evaluation of chest pain. Patient states that the chest pain is in the center part of his chest radiating to his back and his left shoulder is occurred over the last few days. Currently reports the pain is a 2/10. He reports no shortness of breath, hemoptysis or cough. He reports no fevers or chills. Pain is not positional and nonspecific in nature. ROS All systems reviewed and are negative except as per history of present illness. Medications Home Meds Reported Medications Acetaminophen* (Acetaminophen*) 500 MG Extra Strength Tablet, 500 MG PO NEEDED PRN for PAIN AND OR ELEVATED TEMP, TAB 10/22/18 Acyclovir* (Acyclovir*) 400 Mg Tablet, 400 MG PO DAILY, TAB 10/22/18 Cyclosporine* (Cyclosporine* Modified) 100 Mg Capsule, 200 MG PO QAM, CAP 07/05/18 Folic Acid* (Folic Acid*) 1 Mg Tablet, 4 MG PO DAILY, TAB 07/05/18 Discontinued Reported Medications Deferasirox (Jadenu) 360 Mg Tablet, 1080 MG PO QAM, TAB 07/05/18 Acyclovir* (Acyclovir*) 200 Mg Capsule, 400 MG PO DAILY, CAP 07/05/18 Discontinued Scripts Levofloxacin* (Levofloxacin*) 500 Mg Tablet, 500 MG PO DAILY for 5 Days, TAB Prov:MARIA ELENA ADAMSON MD 07/10/18 [id number] Hb* (Guaifenesin* DM Syrup) 120 Ml Syrup, 10 ML PO Q4H PRN for COUGH for 1 Day Prov:MARIA ELENA ADAMSON MD 07/10/18 Allergies Allergies: Coded Allergies: No Known Allergies (Verified Allergy, Mild, 10/22/18) PMhx/Soc History of Surgery: Yes (tumor removal from chest) Anesthesia Reaction: No Hx Neurological Disorder: No Hx Respiratory Disorders: No Hx Cardiac Disorders: No Hx Psychiatric Problems: No Hx Miscellaneous Medical Probl: Yes (APALSTIC ANEMIA) Hx Alcohol Use: No Hx Substance Use: No Hx Tobacco Use: Yes Smoking Status: Former smoker FmHx Noncontributory for chief complaint Physical Exam Vitals Vital Signs Date Temp Pulse Resp B/P (MAP) Pulse Ox O2 O2 Flow FiO2 Time Delivery Rate 10/22/18 98.8 80 18 147/80 99 11:18 (102) Physical Exam GENERAL: The patient is well developed and appropriate for usual state of health in no apparent distress HEENT: Pupils equal, round, and reactive to light. EOMI. There is no scleral icterus. NECK: C-spine is soft and supple, there is no meningismus. There is no cervical lymphadenopathy. LUNGS: Clear to auscultation bilaterally. There are no rales, wheezes or rhonchi. HEART: Regular rate and rhythm, no murmurs, clicks, rubs or gallops. ABDOMEN: Soft, non-tender, non-distended. There are bowel sounds in all four quadrants. No rebound or guarding. EXTREMITIES: There is no peripheral cyanosis or edema. No focal swelling or erythema. NEURO: The patient moves all four extremities with 5/5 strength. Cranial nerves II - XII are intact. Normal gait. Alert and oriented SKIN: There is no apparent rash or petechiae. HEME/LYMPHATIC: There is no evidence of excessive bruising or lymphedema. PSYCHIATRIC: The patient does not appear anxious or depressed. Result Diagram: 10/22/18 1218 10/22/18 1218 Results 24 hrs Laboratory Tests Test 10/22/18 12:18 White Blood Count 6.4 10^3/ul Red Blood Count 3.80 10^6/ul Hemoglobin 13.8 g/dl Hematocrit 38.7 % Mean Corpuscular Volume 101.8 fl Mean Corpuscular Hemoglobin 36.3 pg Mean Corpuscular Hemoglobin Concent 35.7 g/dl Red Cell Distribution Width 12.6 % Platelet Count 154 10^3/UL Mean Platelet Volume 9.8 fl Immature Granulocytes % 6.400 % Neutrophils % 57.5 % Lymphocytes % 25.0 % Monocytes % 10.0 % Eosinophils % 0.5 % Basophils % 0.6 % Nucleated Red Blood Cells % 0.0 /100WBC Immature Granulocytes # 0.410 10^3/ul Neutrophils # 3.7 10^3/ul Lymphocytes # 1.6 10^3/ul Monocytes # 0.6 10^3/ul Eosinophils # 0.0 10^3/ul Basophils # 0.0 10^3/ul Nucleated Red Blood Cells # 0.0 10^3/ul Sodium Level 140 mmol/L Potassium Level 4.5 mmol/L Chloride Level 108 mmol/L Carbon Dioxide Level 23 mmol/L Anion Gap 9 Blood Urea Nitrogen 19 mg/dl Creatinine 0.93 mg/dl Est Glomerular Filtrat Rate mL/min > 60 mL/min Glucose Level 97 mg/dl Calcium Level 9.7 mg/dl Total Bilirubin 0.8 mg/dl Direct Bilirubin 0.00 mg/dl Indirect Bilirubin 0.8 mg/dl Aspartate Amino Transf (AST/SGOT) 28 IU/L Alanine Aminotransferase (ALT/SGPT) 23 IU/L Alkaline Phosphatase 105 IU/L Troponin I < 0.012 ng/ml Total Protein 7.2 g/dl Albumin 4.6 g/dl Globulin 2.60 g/dl Albumin/Globulin Ratio 1.76 Current Medications Medications Dose Sig/Riya Start Time Status Last (Trade) Ordered Route PRN Stop Time Admin Dose Reason Admin IV Flush 10 ml STK-MED 10/22/18 DC (NS 10 ml) ONCE .ROUTE 13:10/22/18 13:30 Sodium 100 ml @ ud STK-MED 10/22/18 DC Chloride ONCE .ROUTE 13:10/22/18 13:30 Iohexol 100 ml @ ud STK-MED 10/22/18 DC ONCE .ROUTE 13:10/22/18 13:30 Procedures/MDM Patient was taken to a room, seen and evaluated. Comfort measures were initiated. Diagnostic tests were ordered and reviewed. 3 LEAD RHYTHM STRIP: Normal sinus rhythm without ectopy EK lead EKG reviewed by myself: Normal Sinus Rhythm Normal [place] and intervals No ST elevation, depression, or T wave inversion Impression: Normal EKG RADIOLOGY: Reviewed with the radiologist CONSULTATION: Dr. Adamson was notified for admission REEVALUATION: She remained hemo-dynamically stable. Diagnostic tests were appreciated. Arrangements were made for admission after discussion with the patient. MEDICAL DECISION MAKIN-year-old male presents the emergency room with a nonspecific chest discomfort. Initial differential diagnosis entertained included cardiac thromboembolic and other significant concerns. Patient's initial EKG and troponin are reassuring, but patient will be admitted to the hospital for cardiac observation and further diagnostic care. CT scan of the chest is pending to rule out pulmonary embolism given his history of treatment for aplastic anemia. At this time, he is hemodynamically stable with no hypoxemia. Departure Diagnosis: Primary Impression: Chest pain Condition: JAMI Corado Oct 22, 2018 14:03
[2018-10-22] MEDS ORDERED: ONDANSETRON 4 MG INJ IV PRN (15:00)
[2018-10-22] MEDS ORDERED: ACETAMINOPHEN 325 MG TAB PO PRN (15:00)
[2018-10-22 22:33] VITALS: PULSE 72
[2018-10-22 22:47] VITALS: BP 135/86; PULSE 70; RESP 18
[2018-10-22 23:03] VITALS: Ht 177.8 cm; Wt 100.7 kg
[2018-10-23] VITALS (12 sets, daily range): BP systolic 111–130; BP diastolic 69–77; PULSE 70–97; RESP 18–20
[2018-10-23] MEDS ORDERED: ACETAMINOPHEN 500 MG TAB PO PRN (02:30)
[2018-10-23] MEDS ORDERED: ONDANSETRON 4 MG INJ IV PRN (03:00)
[2018-10-23] MEDS: FOLIC ACID 1 MG TAB PO SCH (08:03)
[2018-10-23] MEDS: ACYCLOVIR 400 MG TAB PO SCH (08:03)
[2018-10-23] MEDS: CYCLOSPORINE MICROEMULS 100 MG CAP PO SCH (12:03)
[2018-10-23] MEDS ORDERED: NITROGLYCERIN (SL) 0.4 MG TAB SL PRN (13:00)
--- NOTE | 2018-10-23 13:41 | CONS ---
DATE OF ADMISSION: 10/22/2018 DATE OF CONSULTATION: 10/23/2018 TYPE OF CONSULTATION: Cardiology. REASON FOR CONSULTATION: Chest pain, assess for acute coronary syndrome. REQUESTING PHYSICIAN: Marium Adamson MD HISTORY OF PRESENT ILLNESS: Mr. Luciano is a 58-year-old male with a history of aplastic anemia tumo r removal from chest, former tobacco, quit x25 years who states that 4 to 5 days prior to admission, he was sleeping in bed and was awoken from a substernal chest pain in the left side, describes a pres sure-like sensation. He said chest pain then dissipated. He went back to sleep in morning he awoke and had a heaviness in shoulder radiating down his arm. The patient states that it dissipated. He s aw his PMD this week and was sent to the hospital for further evaluation and treatment. Since admitt ed to the hospital, the patient denies ongoing chest pain. Upon arrival, temperature was 98.2, blood pressure 123/77, pulse 81, respiratory rate 18, satting 97%. The patient's labs were notable for wh ite blood cell count of 6.4, hemoglobin 13.8, platelet count 154, sodium 140, potassium 4.5, creatini ne 0.9, BUN 19, troponin negative, LDL 105, HDL 27. The patient underwent a CTA revealing no pulmona ry embolism, no thoracic aortic aneurysm, no pneumonia and a chest x-ray that revealed no acute cardi opulmonary abnormalities. The patient underwent electrocardiogram revealed sinus rhythm, rate of 82, normal axis, biphasic T-wave abnormalities, isolated to lead 3. The patient then was admitted to e floor and since admit to floor, denies ongoing chest pains. He was monitored on telemetry revealin g only sinus rhythm. The patient has had 2 troponins return negative. PAST MEDICAL HISTORY: As above in HPI. MEDICATIONS CURRENTLY IN HOSPITAL: 1. Acyclovir 400 mg daily. 2. Cyclosporine 10 mg daily. 3. Folic acid. 4. Zofran. 5. Tylenol. ALLERGIES: NO KNOWN DRUG ALLERGIES. SOCIAL HISTORY: No current tobacco, EtOH or illicit drug use. FAMILY HISTORY: No history of sudden cardiac or early CAD. REVIEW OF SYSTEMS: As above in HPI. CONSTITUTIONAL: No fevers, chills. PULMONARY: No current shortness of breath. CARDIOVASCULAR: Intermittent chest pain, none currently. GASTROINTESTINAL: No vomiting. GENITOURINARY: No hematuria. MUSCULOSKELETAL: Degenerative joint disease. PSYCHIATRIC: The patient denies depression. NEUROLOGIC: No documented history of CVA. ENDOCRINE: No documented history of diabetes mellitus. PHYSICAL EXAMINATION: VITAL SIGNS: Temperature 98.4, blood pressure 111/70, pulse 85, respiratory rate 19, satting 94%. GENERAL: The patient is alert, awake, in no acute distress. NECK: JVP is approximately 8 to 9 cm of water. CHEST: Fair air movement throughout. HEART: Regular rate and rhythm. Normal S1, S2, I/ systolic murmur, nondisplaced PMI. ABDOMEN: Positive bowel sounds, soft. EXTREMITIES: No significant pitting edema, 1+ pulses bilateral posterior tibial. LABORATORY DATA: Most recently from today, sodium 141, potassium 4.6, creatinine 0.9, BUN 20. LDL 1 05, HDL 27. White blood cell count 6.1, hemoglobin 13.6, platelet count of 143. IMAGING STUDIES: As above in HPI. No further imaging studies for my review at this time. ELECTROCARDIOGRAM: As above in HPI. No further electrocardiograms for my review at this time. IMPRESSION: 1. Chest pain, assess for acute coronary syndrome. 2. Abnormal electrocardiogram, assess for acute coronary syndrome. 3. History of aplastic anemia. 4. History of tumor in chest. 5. Dyslipidemia with low HDL. RECOMMENDATIONS: 1. At this time, we would maintain the patient on telemetry monitoring to follow rhythm and rate con trol closely. 2. Complete the patient's rule out for myocardial infarction to ensure the patient's chest pain was not due to an acute coronary syndrome or acute myocardial infarction. 3. We will check a 2D echo for this patient's ejection fraction, wall motion or rule out any major v alvular abnormalities. 4. We will follow the patient's blood pressure closely off of antihypertensives and give sublingual nitroglycerins this time for recurrence of chest pain. 5. If the patient does rule out, we will consider further risk stratification with stress test which can take place first thing in the morning. Thank you for allowing me to take part in the care of this patient. I will continue to follow him ve ry closely with you with further recommendations to be made as the [facility] Dictated By: TAMMIE KRAFT/KATIUSKA Conf#: [id number] DID#: [id number] CC: MARIUM ADAMSON;*Ruchi*
--- NOTE | 2018-10-23 14:39 | QN ---
Documentation Comment pt was seen and examined in am MARIA ELENA RIDDLE MD Oct 23, 2018 14:39
--- NOTE | 2018-10-23 15:07 | HP ---
DATE OF ADMISSION: 10/22/2018 REASON FOR ADMISSION: Chest pain. 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 When he came to the emergency department, he was complaining of substernal chest pain in the left side that started sinc e Saturday. According to the patient, he had been doing fine. He was sleeping but all of a sudden h e woke up from substernal chest pain which was a pressure-like. The pain went to the back and to the left side of the neck and the left arm. Yesterday whole day, he was feeling the heaviness and he to ld his doctor and was told to come into the emergency for further evaluation. On admission, temperat ure was 98.2, blood pressure 123/77, pulse 81, respirations 18, saturating 97%. White count of 6.4, hemoglobin 13.8, platelet count 154, BUN of 19, creatinine 0.9. Troponin was negative. The patient also had CT of the chest that showed no pulmonary embolism, no thoracic aortic aneurysm or dissection , no pneumonia, right renal cyst and the patient was admitted for further management. PAST MEDICAL HISTORY: 1. Aplastic anemia. 2. Cardiac surgery for cardiac tumor. 3. History of benign lesion, herpes simplex. 4. History of thymectomy. MEDICATIONS AT HOME: 1. Acyclovir 400 daily. 2. Acetaminophen. 3. Folic acid. 4. Cyclosporine 200 q.a.m. SOCIAL HISTORY: Ex-smoker. Denies any alcohol, any recreational drug use. Currently lives at home with family. FAMILY HISTORY: Noncontributory. REVIEW OF SYSTEMS: The patient denies any abdominal pain, nausea, vomiting, diarrhea. The patient d enies any shortness of breath, any cough, fevers or chills. Denies any hematemesis, any melena, any bright red blood per rectum. Denies any focal neurological deficit. PHYSICAL EXAMINATION: VITAL SIGNS: Currently, blood pressure 111/70, pulse 85, respirations 18, satting 95%, afebrile. GENERAL: The patient is awake, alert, oriented, does not appear to be in any acute distress. HEENT: Pupils are equal, round, react to light. NECK: Supple. No JVD. HEART: Regular rate and rhythm. ABDOMEN: Soft, nontender, nondistended, positive normoactive bowel sounds. EXTREMITIES: No clubbing, cyanosis or edema. LABORATORY DATA: Showed BUN and creatinine within normal limit. Troponin is less than 0.012. LDL i s 105. White count of 6.4, hemoglobin 13.8, platelet count 154. DIAGNOSTIC DATA: EKG: No acute ST-T wave changes. Chest x-ray: No acute disease. CT angio is ess entially negative. ASSESSMENT AND PLAN: 1. A 58-year-old male who presented with chest pain, rule out acute coronary syndrome. 2. History of aplastic anemia. 3. History of tumor in the chest. 4. History of gastritis. 5. History of thymectomy. PLAN: At this period of time, the patient is admitted to telemetry. We will get an echo. Serial tr oponins have been done. The patient cannot be on aspirin due to aplastic anemia. The patient will c all cardiology consultation with Dr. King. Rest of the treatment will depend on the patient's hos pitalization course. Dictated By: MARIA ELENA DESAI/KATIUSKA Conf#: [id number] DID#: [id number]
[2018-10-24] VITALS (8 sets, daily range): BP systolic 109–136; BP diastolic 66–74; PULSE 69–101; RESP 17–18
[2018-10-24] MEDS: CYCLOSPORINE MICROEMULS 100 MG CAP PO SCH (07:49)
[2018-10-24] MEDS: FOLIC ACID 1 MG TAB PO SCH (07:49)
[2018-10-24] MEDS: ACYCLOVIR 400 MG TAB PO SCH (07:50)
[2018-10-24] MEDS ORDERED: REGADENOSON 0.4 MG/5 ML SYG ONE (10:59)
--- NOTE | 2018-10-24 11:57 | CONS ---
Assessment/Plan Assessment/Plan Hospital Course (Demo Recall) IMPRESSION: 1. Chest pain, assess for acute coronary syndrome. 2. Abnormal electrocardiogram, assess for acute coronary syndrome. 3. History of aplastic anemia. 4. History of tumor in chest. 5. Dyslipidemia with low HDL. Recc: -Tele -serial ecg's -Lexiscan stres test today -SL NTG for recurrent chest pain Consultation Date/Type/Reason Admit Date/Time Oct 22, 2018 at 14:39 Initial Consult Date 10/23/18 Type of Consult Cardiology Reason for Consultation Chest pain Requesting Provider: MARIA ELENA RIDDLE MD Date/Time of Note DATE: 10/24/18 TIME: 11:53 Exam/Review of Systems Vital Signs Vitals Vital Signs Date Temp Pulse Resp B/P (MAP) Pulse Ox O2 O2 Flow FiO2 Time Delivery Rate 10/24/18 98.1 79 18 136/72 98 Room Air 08:32 (93) Intake and Output 10/23/18 10/23/18 10/24/18 1515:00 23:00 07:00 IntakeIntake Total 1200 ml 1000 ml BalanceBalance 1200 ml 1000 ml Exam Exam Review of Systems: CONSTITUTIONAL: No fevers, chills. PULMONARY: No sob CARDIOVASCULAR: No chest pain/palpitations GASTROINTESTINAL: No nausea/vomiting. GENITOURINARY: No hematuria/dysuria. MUSCULOSKELETAL: No myagias/arthalgias. PSYCHIATRIC: The patient denies depression. NEUROLOGIC: No weakness Constitutional: alert, oriented Psych: no complaints Head: normocephalic ENMT: mucosa pink and moist Neck: supple, jvd Respiratory: clear to auscultation Cardiovascular: regular rate and rhythm Gastrointestinal: soft, non-tender Musculoskeletal: muscle tone (normal) Extremities: edema (none) Labs Result Diagram: 10/23/1851110/23/18 0512 Results 24hrs Laboratory Tests Test 10/23/18 18:16 10/24/18 00:32 Troponin I < 0.012 < 0.012 Medications Medications Current Medications Acetaminophen (Tylenol Tab) 500 mg Q6 PRN PO MILD PAIN(1-3)OR ELEVATED TEMP Last administered on 10/23/18at 13:57; Admin Dose 500 MG; Start 10/23/18 at 02:30 Acyclovir (Zovirax) 400 mg DAILY PO Last administered on 10/24/18at 07:50; Admin Dose 400 MG; Start 10/23/18 at 09:00 Cyclosporine (Neoral) 200 mg QAM PO Last administered on 10/24/18at 07:49; Admin Dose 200 MG; Start 10/23/18 at 09:00 Folic Acid (Folic Acid) 4 mg DAILY PO Last administered on 10/24/18at 07:49; Admin Dose 4 MG; Start 10/23/18 at 09:00 Ondansetron HCl (Zofran Inj) 4 mg Q6H PRN IV NAUSEA AND/OR VOMITING; Start 10/23/18 at 03:00 Nitroglycerin (Nitroglycerin (Sl Tab) 0.4 Mg) 1 tab Q5M PRN SL ANGINA; Start 10/23/18 at 13:00 TAMMIE BOYLE Oct 24, 2018 11:57
--- NOTE | 2018-10-24 13:04 | PN ---
Date/Time of Note Date/Time of Note DATE: 10/24/18 TIME: 13:03 Assessment/Plan VTE Prophylaxis Risk score (from [facility]0 risk: 1 SCD applied (from [facility] No SCD contraindicated: low risk/ambulating Pharmacological prophylaxis: NA/contraindicated Pharm contraindication: blood coag disorder, anticoag not tolerated Lines/Catheters IV Catheter Type (from [facility] Saline Lock Urinary Cath still in place: No Assessment/Plan Hospital Course 1. Chest pain, rule out acute coronary syndrome. 2. History of aplastic anemia. Now macrocytic hyperchromic anemia 3. History of tumor in the chest. 4. History of gastritis. 5. History of thymectomy. 6. Obesity 7. Triglyceridemia Assessment/Plan - telemetry. ST -start NIacin -lexiscan is done, pending results - echo. - Serial troponins are negative - cardiology consultation with Dr. King. -DVT proph.ambulation -GI proph. Start Protonix -possible d/c Result Diagram: 10/23/18 0512 10/23/18 0512 Results 24hrs Laboratory Tests Test 10/23/18 18:16 10/24/18 00:32 Troponin I < 0.012 < 0.012 Subjective 24 Hr Interval Summary Free Text/Dictation no chest pain Musculoskeletal: bone/joint pain (left shoulder pain) Exam/Review of Systems Exam Vitals Vital Signs Date Temp Pulse Resp B/P (MAP) Pulse Ox O2 O2 Flow FiO2 Time Delivery Rate 10/24/18 101 12:03 10/24/18 98.1 18 136/72 98 Room Air 08:32 (93) Intake and Output 10/23/18 10/23/18 10/24/18 1515:00 23:00 07:00 IntakeIntake Total 1200 ml 1000 ml BalanceBalance 1200 ml 1000 ml Constitutional: alert, oriented Respiratory: clear to auscultation Cardiovascular: regular rate and rhythm Gastrointestinal: soft Results Results 24hrs Laboratory Tests Test 10/23/18 18:16 10/24/18 00:32 Troponin I < 0.012 < 0.012 Medications Medication Current Medications Acetaminophen (Tylenol Tab) 500 mg Q6 PRN PO MILD PAIN(1-3)OR ELEVATED TEMP Last administered on 10/23/18at 13:57; Admin Dose 500 MG; Start 10/23/18 at 02:30 Acyclovir (Zovirax) 400 mg DAILY PO Last administered on 10/24/18at 07:50; Admin Dose 400 MG; Start 10/23/18 at 09:00 Cyclosporine (Neoral) 200 mg QAM PO Last administered on 10/24/18at 07:49; Admin Dose 200 MG; Start 10/23/18 at 09:00 Folic Acid (Folic Acid) 4 mg DAILY PO Last administered on 10/24/18at 07:49; Admin Dose 4 MG; Start 10/23/18 at 09:00 Ondansetron HCl (Zofran Inj) 4 mg Q6H PRN IV NAUSEA AND/OR VOMITING; Start 10/23/18 at 03:00 Nitroglycerin (Nitroglycerin (Sl Tab) 0.4 Mg) 1 tab Q5M PRN SL ANGINA; Start 10/23/18 at 13:00 AMERICA VALDEZ Oct 24, 2018 13:04
[2018-10-24] MEDS ORDERED: NIACIN 100 MG TAB PO SCH (13:30)
[2018-10-24] MEDS ORDERED: DICLOFENAC SODIUM 1% GEL 100 GM TUBE TP SCH (14:00)
[2018-10-24] MEDS ORDERED: NIAC50TA PO (14:57)
[2018-10-24] MEDS ORDERED: NITR0.4T32 SL (14:57)
[2018-10-24] MEDS ORDERED: DICL100G33 TP (14:57)
--- NOTE | 2018-10-24 14:58 | PDOCDIS ---
Discharge Instructions DIAGNOSIS Discharge Diagnosis left shoulder pain CONDITION [id number] Patient Condition: [id number] Stable HOME CARE INSTRUCTIONS: [id number] Diet Instructions: [id number] Regular ACTIVITY: [id number] Activity Restrictions: [id number] Slowly Increase Activity Rest between Activity Avoid heavy lifting FOLLOW UP/APPOINTMENTS Follow-up Plan PCP 1 week SCHOOL/WORK RELEASE May return to School/Work with: No Restrictions AMERICA VALDEZ Oct 24, 2018 14:58
--- NOTE | 2018-10-24 14:58 | DS ---
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 When he came to the emergency department, he was complaining of substernal chest pain in the left side that started since . According to the patient, he had been doing fine. He was sleeping but all of a sudden he woke up from substernal chest pain which was a pressure-like. The pain went to the back and to the left side of the neck and the left arm. Yesterday whole day, he was feeling the heaviness and he told his doctor and was told to come into the emergency for further evaluation. On admission, temperature was 98.2, blood pressure 123/77, pulse 81, respirations 18, saturating 97%. White count of 6.4, hemoglobin 13.8, platelet count 154, BUN of 19, creatinine 0.9. Troponin was negative. The patient also had CT of the chest that showed no pulmonary embolism, no thoracic aortic aneurysm or dissection, no pneumonia, right renal cyst and the patient was admitted for fu rther management. PAST MEDICAL HISTORY: 1. Aplastic anemia. 2. Cardiac surgery for cardiac tumor. 3. History of benign lesion, herpes simplex. 4. History of thymectomy.1. Chest pain, rule out acute coronary syndrome. 2. History of aplastic anemia. Now macrocytic hyperchromic anemia 3. History of tumor in the chest. 4. History of gastritis. 5. History of thymectomy. 6. Obesity 7. Triglyceridemia During hospitalization pt was on telemetry service. Pt had Sr-ST. Dr King, cardiology followed pt closely. He ordered lexiscan, that was negative, echocardiogram was done also. Serial troponins were negative. Prior to dc pt denied chest pain, point to left shoulder pain. Lipid panel was abnormal and we started pt on NIacin to increase hDL. Pt was ambulated prior to d/c, his h and H is stable. Pt was d/c home. - Home Meds Active Scripts Diclofenac Sodium (Diclofenac Sodium) 100 Gm Gel..gram., 2 GM TP QID for 14 Days Prov:AMERICA VALDEZ 10/24/18 Nitroglycerin* (Nitroglycerin* SL) 0.4 Mg Tab.subl, 1 TAB SL Q5M PRN for ANGINA for 30 Days Prov:AMERICA VALDEZ 10/24/18 Niacin (Niacin) 50 Mg Tablet, 100 MG PO DAILY for 30 Days, TAB Prov:AMERICA VALDEZ 10/24/18 Reported Medications Acetaminophen* (Acetaminophen*) 500 MG Extra Strength Tablet, 500 MG PO NEEDED PRN for PAIN AND OR ELEVATED TEMP, TAB 10/22/18 Acyclovir* (Acyclovir*) 400 Mg Tablet, 400 MG PO DAILY, TAB 10/22/18 Cyclosporine* (Cyclosporine* Modified) 100 Mg Capsule, 200 MG PO QAM, CAP 07/05/18 Folic Acid* (Folic Acid*) 1 Mg Tablet, 4 MG PO DAILY, TAB 07/05/18 Discontinued Reported Medications Deferasirox (Jadenu) 360 Mg Tablet, 1080 MG PO QAM, TAB 07/05/18 Acyclovir* (Acyclovir*) 200 Mg Capsule, 400 MG PO DAILY, CAP 07/05/18 Discontinued Scripts Levofloxacin* (Levofloxacin*) 500 Mg Tablet, 500 MG PO DAILY for 5 Days, TAB Prov:MARIA ELENA RIDDLE MD 07/10/18 [id number]-Mmbifdplxk Hb* (Guaifenesin* DM Syrup) 120 Ml Syrup, 10 ML PO Q4H PRN for COUGH for 1 Day Prov:MARIA ELENA RIDDLE MD 07/10/18 Follow-up Plan PCP 1 week Primary Care Provider Not On Staff Doctor Time spent on discharge: < 30 minutes Pending Labs Laboratory Tests Test 10/23/18 18:16 10/24/18 00:32 Troponin I < 0.012 ng/ml (0.000-0.120) < 0.012 ng/ml (0.000-0.120) AMERICA VALDEZ Oct 24, 2018 14:58
[2018-10-24] MEDS ORDERED: NIACIN 50 MG TAB PO SCH (15:00)
--- NOTE | 2018-10-24 16:22 | CARRPT ---
DATE OF PROCEDURE: 10/24/2018 TYPE OF PROCEDURE: Lexiscan Cardiolite stress test, electrocardiogram portion. INDICATION: Chest pain, assess for ischemia. BASELINE VITAL SIGNS AND ELECTROCARDIOGRAM: Pulse 85, blood pressure 120/82. Electrocardiogram reve als normal sinus rhythm at a rate of 85, normal axis, normal intervals, borderline inferior Q's. DESCRIPTION OF PROCEDURE: The patient underwent standard Lexiscan infusion protocol over 10 seconds followed by radiolabeled tracer. The patient's test was stopped due to completion of protocol. Maxi mal achieved blood pressure during the test was 140/74. Maximum heart rate during the test was 113. ELECTROCARDIOGRAM FINDINGS: The patient did not develop any new Lexiscan-induced ST or T-wave change s from baseline abnormalities. No documented PVCs. SYMPTOMS: The patient had mild complaints of shortness of breath during stress test and stomach pain which resolved in recovery. IMPRESSION: 1. No Lexiscan-induced ST or T-wave changes from baseline abnormalities diagnostic of cardiac ischem ia. 2. Complaints of shortness breath during stress test that resolved in recovery. 3. No chest pain during stress testing. 4. No documented premature ventricular contractions during stress testing. 5. Report of nuclear images to follow in separate dictation. Dictated By: TAMMIE KRAFT/KATIUSKA Conf#: [id number] DID#: [id number] CC: MARIA ELENA RIDDLE;*End*
--- NOTE | 2018-10-24 16:44 | RADRPT ---
Echocardiogram Report Patient Name: DALTON HERNÁNDEZPatient ID: [id number] : 1960 (58y 9m)Study Date: 10/23/2018 1:25:35 PM Gender: MAccession #: [id number] Tech: Rachid Nuñez [facility] Location: [id number] Ref.Physician: TAMMIE KING Height(Cm): BSA: Weight(Kg): Quality: AdequateAccount #: Procedures: Echocardiographic Report: Transthoracic echocardiogram with complete 2D, M-Mode, and doppler examination. Indications: Chest Pain. Measurements: 2D/M Mode Doppler Measurement Value Normal Range Measurement Value Normal Range LVIDd 2D 3.5 [ 4.2 - 5.8 ] cm AV Peak Fuentes 1.3 [ 100.0 - 170.0 ] cm/sec LVIDs 2D 2.3 [ 2.5 - 4.0 ] cm AV Peak PG 7.0 [ 2.0 - 9.0 ] mmHg LVPWd 2D 1.5 [ 0.6 - 1.0 ] cm LVOT Peak Fuentes 1.2 [ 70.0 - 110.0 ] cm/sec IVSd 2D 1.5 [ 0.6 - 1.0 ] cm LVOT Peak PG 6.0 [ 2.0 - 6.0 ] mmHg AoR Diam 2D 3.5 [ 2.6 - 3.4 ] cm MV E Peak Fuentes 0.5 [ 60.0 - 130.0 ] cm/sec EDV 2D 50.9 [ 62.0 - 150.0 ] ml MV A Peak Fuentes 0.9 [ 100.0 - 120.0 ] cm/sec ESV 2D 18.3 [ 21.0 - 61.0 ] ml MV E/A 0.5 [ 0.8 - 1.5 ] ratio EF 2D 64.0 [ 52.0 - 72.0 ] percent MV Decel Time 134 [ 104 - 258 ] msec LA Dimen 2D 3.9 [ 3.0 - 4.0 ] cm Lat E` Fuentes 0.1 [ 10.0 - 15.0 ] cm/sec Lateral E/E` 5.1 [ 1.0 - 2.0 ] ratio MV E/A 0.5 [ 0.8 - 1.5 ] ratio TR Peak Fuentes 2.2 [ 100.0 - 280.0 ] cm/sec TR Peak PG 19.0 mmHg RVSP 22.0 [ 10.0 - 36.0 ] mmHg RA Pressure 3.0 mmHg Findings: Left Ventricle: Normal left ventricular systolic function. Normal left ventricular cavity size. Moderate concentric left ventricular hypertrophy. Ejection fraction is visually estimated at 55 %. Tissue Doppler/Mitral Doppler indices are consistent with impaired relaxation (Stage I diastolic dysfunction). Right Ventricle: Normal right ventricular size. Normal right ventricular systolic function. Left Atrium: The left atrium is normal in size. Right Atrium: The right atrium is normal in size. Mitral Valve: Normal appearance and function of the mitral valve with trace physiologic regurgitation. Aortic Valve: Normal appearance of the aortic valve. No significant aortic stenosis or insufficiency. Tricuspid Valve: Normal appearance of the tricuspid valve. Estimated peak PA systolic pressure 22 mmHg. There is trace tricuspid regurgitation. Pulmonic Valve: Normal pulmonic valve appearance. Pericardium: Normal pericardium with no significant pericardial effusion. Aorta: Normal aortic root. IVC: Normal size and normal respiratory collapse consistent with normal right atrial pressure. Conclusions: Normal left ventricular systolic function. Normal left ventricular cavity size. Moderate concentric left ventricular hypertrophy. Ejection fraction is visually estimated at 55 %. Tissue Doppler/Mitral Doppler indices are consistent with impaired relaxation (Stage I diastolic dysfunction). Normal appearance and function of the mitral valve with trace physiologic regurgitation. Normal appearance of the tricuspid valve. Estimated peak PA systolic pressure 22 mmHg. There is trace tricuspid regurgitation. Electronically Signed By: Tammie King 2018-10-24 16:43:19 PDT
[2018-10-25] MEDS ORDERED: PANTOPRAZOLE (EC) 40 MG TAB PO SCH (06:00)
== END 2018-10-24 16:04 | disposition home or self-care (01) ==
LOC: E/R 11:13 → 6WM 14:39
PROVIDERS: ADMIT Internal Medicine; ATTEND Internal Medicine
DX: M25.512 Pain in left shoulder (principal); R07.9 Chest pain, unspecified; E78.5 Hyperlipidemia, unspecified; R94.31 Abnormal electrocardiogram [ECG] [EKG]; Z87.891 Personal history of nicotine dependence
CPT/HCPCS: 71045; 71275; 78452; 80053; 80061; 82550; 82553; 83036; 84443; 84484; 85025; 93005; 93017; 93306; A9500; A9505; J2785; Q9967; Z7500; Z7502; Z7610; G0378

== ENCOUNTER 2019-02-11 12:05 | Emergency (ER) | payer OTHER ==
[~2019-02-11] VITALS: Ht 177.8 cm; Wt 98.2 kg
[~2019-02-11 12:05] MED LIST changes: +ACET-141 PO; -ACYC200C2 PO; +ACYC400T2 PO; -DEFE360T PO; +DICL100G33 TP; -GUAI120S25 PO; -LEVO500T10 PO; +NIAC50TA PO; +NITR0.4T32 SL
[2019-02-11 12:14] VITALS: Ht 177.8 cm; Wt 98.2 kg
--- NOTE | 2019-02-11 12:23 | EN ---
Date/Time of Note Date/Time of Note DATE: 02/11/19 TIME: 12:23 ER Progress Note [facility]-89-eenl-old male with a history of thymoma and aplastic anemia referred by hematology for transfusion. Patient complains of intermittent palpitations, headache and fatigue. VIRGINIE ROMERO MD Feb 11, 2019 12:23
[2019-02-11] MEDS ORDERED: SOD CHLORIDE 0.9% 0 ML IV ONE (13:47)
--- NOTE | 2019-02-11 15:53 | ERD ---
ER Documentation Chief Complaint Chief Complaint sent by pcp hemoglobin level 7 ; needs blood transfusion HPI 59 year old male presenting with generalized weakness and shortness of breath for the past few days. Patient has a history of PRCA and was recently taken off cyclosporine 1 month ago. He had labs a few days ago by his oncologist that showed a low hemoglobin of 7.7. For that reason he was started back on the cyclosporine. He denies any chest pain, fever, chills. Shortness of breath is worse with exertion. He also has associated palpitations intermittently. ROS All systems reviewed and are negative except as per history of present illness. Medications Home Meds Reported Medications Acyclovir* (Acyclovir*) 400 Mg Tablet, 400 MG PO DAILY, TAB 10/22/18 Cyclosporine* (Cyclosporine* Modified) 100 Mg Capsule, 200 MG PO QAM, CAP 07/05/18 Folic Acid* (Folic Acid*) 1 Mg Tablet, 4 MG PO DAILY, TAB 07/05/18 Discontinued Reported Medications Acetaminophen* (Acetaminophen*) 500 MG Extra Strength Tablet, 500 MG PO NEEDED PRN for PAIN AND OR ELEVATED TEMP, TAB 10/22/18 Discontinued Scripts Diclofenac Sodium (Diclofenac Sodium) 100 Gm Gel..gram., 2 GM TP QID for 14 Days Prov:AMERICA VALDEZ NP 10/24/18 Nitroglycerin* (Nitroglycerin* SL) 0.4 Mg Tab.subl, 1 TAB SL Q5M PRN for ANGINA for 30 Days Prov:AMERICA VALDEZ NP 10/24/18 Niacin (Niacin) 50 Mg Tablet, 100 MG PO DAILY for 30 Days, TAB Prov:AMERICA VALDEZ [employer] 10/24/18 Allergies Allergies: Coded Allergies: No Known Allergies (Verified Allergy, Mild, 02/11/19) PMhx/Soc History of Surgery: Yes (Open heart surgery (2009) tumor (thymoma) removed) Anesthesia Reaction: No Hx Neurological Disorder: No Hx Respiratory Disorders: No Hx Cardiac Disorders: No Hx Psychiatric Problems: No 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 Neck: Full range of motion. No meningismus. Resp: Clear to auscultation bilaterally Cardio: Regular rate and rhythm, no murmurs Abd: Soft, non tender, non distended. Normal bowel sounds Skin: No petechiae or rashes Back: No midline or flank tenderness Ext: No cyanosis, or edema Neur: Awake and alert Psych: Normal Mood and Affect Result Diagram: 02/11/19 1237 02/11/19 1237 Results 24 hrs Laboratory Tests Test 02/11/19 12:37 White Blood Count 3.8 10^3/ul Red Blood Count 1.85 10^6/ul Hemoglobin 6.8 g/dl Hematocrit 19.1 % Mean Corpuscular Volume 103.2 fl Mean Corpuscular Hemoglobin 36.8 pg Mean Corpuscular Hemoglobin Concent 35.6 g/dl Red Cell Distribution Width 13.2 % Platelet Count 152 10^3/UL Mean Platelet Volume 10.5 fl Immature Granulocytes % 0.000 % Neutrophils % % Segmented Neutrophils % (Manual) 61 % Band Neutrophils % (Manual) 1 % Lymphocytes % % Lymphocytes % (Manual) 32 % Monocytes % % Monocytes % (Manual) 6 % Eosinophils % % Basophils % % Nucleated Red Blood Cells % 0.0 /100WBC Immature Granulocytes # 0.000 10^3/ul Neutrophils # 10^3/ul Neutrophils # (Manual) 2.3 10^3/ul Band Neutrophils # 0.0 10^3/ul Lymphocytes (Manual) 1.2 10^3/ul Lymphocytes # 10^3/ul Monocytes # 10^3/ul Monocytes # (Manual) 0.2 10^3/ul Eosinophils # 10^3/ul Basophils # 10^3/ul Nucleated Red Blood Cells # 10^3/ul Platelet Estimate NORMAL Hypochromasia 1+ Anisocytosis 1+ Microcytosis 1+ Prothrombin Time 13.5 Sec Prothrombin Time Ratio 1.1 INR International Normalized Ratio 1.02 Activated Partial Thromboplast Time 34.6 Sec Sodium Level 138 mmol/L Potassium Level 4.2 mmol/L Chloride Level 104 mmol/L Carbon Dioxide Level 27 mmol/L Anion Gap 7 Blood Urea Nitrogen 18 mg/dl Creatinine 0.95 mg/dl Est Glomerular Filtrat Rate mL/min > 60 mL/min Glucose Level 136 mg/dl Calcium Level 9.1 mg/dl Total Bilirubin 0.7 mg/dl Direct Bilirubin 0.00 mg/dl Indirect Bilirubin 0.7 mg/dl Aspartate Amino Transf (AST/SGOT) 18 IU/L Alanine Aminotransferase (ALT/SGPT) 27 IU/L Alkaline Phosphatase 82 IU/L Total Protein 6.6 g/dl Albumin 4.1 g/dl Globulin 2.50 g/dl Albumin/Globulin Ratio 1.64 Current Medications Medications Dose Sig/Riya Start Time Status Last (Trade) Ordered Route PRN Stop Time Admin Dose Reason Admin Sodium 0 ml @ 0 Q0M ONCE 02/11/19 DC 02/11/19 Chloride mls/hr IV 13:47 13:47 02/11/19 13:49 Procedures/MDM EMERGENT LABS AND DIAGNOSTIC STUDIES: Lab Results above were reviewed and interpreted by me. CBC: Anemia with hemoglobin 6.8. Mild leukopenia. BMP: [no e/o clinically significant electrolyte abnormality severe acidosis, alkalosis, renal failure, diabetic ketoacidosis] Initial Nursing notes reviewed. Previous Medical Records requested via the Electronic Health Record. EMERGENCY DEPARTMENT COURSE / MEDICAL DECISION MAKING: Patient presents with symptomatic anemia. He is hemodynamically stable. 1 unit of PRBCs were ordered and transfused. Spoke with his heme-onc doctor, Dr. Baker, who recommended only 1 unit of PRBCs to be given and he will follow-up with the patient outpatient. Critical Care Management of Hemorrhage and Symptomatic Anemia: Time: 35 minutes Treatments/Evaluations: Close monitoring and management of bleeding sources while maintaining tight balance of fluid. With judicious assessment of anemia, coagulopathy and thrombocytopenia, while considering correction with blood products and medical therapy. Patient's blood pressure was elevated (>120/80) but appears stable without evidence of hypertensive emergency or urgency. The patient was counseled about the risks of hypertension and urged to pursue outpatient monitoring and therapy within a week with their primary care physician. Departure Diagnosis: Primary Impression: Symptomatic anemia Condition: MARLENI Rivera MD Feb 11, 2019 15:53
[2019-02-11 17:05] VITALS: BP 126/77; PULSE 77; RESP 20
== END 2019-02-11 17:13 | disposition home or self-care (01) ==
LOC: E/R 12:05
DX: D64.9 Anemia, unspecified (principal); R06.02 Shortness of breath
CPT/HCPCS: 36415; 36430; 80053; 85025; 85610; 85730; 86850; 86900; 86901; 86920; J7040; P9016; Z7502